=== PATIENT | male | born 2000 | race Hispanic/Latino ===

== ENCOUNTER 2022-04-29 18:13 | Emergency (ER) | payer MEDICAID ==
[~2022-04-29] VITALS: Ht 167.6 cm; Wt 57.2 kg
[2022-04-29 18:14] VITALS: BP 135/82
[2022-04-29 19:00] LABS: APPEARANCE,URINE CLEAR (CLEAR); BILIRUBIN,URINE NEGATIVE (NEGATIVE); COLOR,URINE YELLOW (YELLOW); GLUCOSE, URINE (UA) NEGATIVE (NEGATIVE); KETONES,URINE 20 mg/dL (NEGATIVE); LEUKOCYTE ESTERASE ,URINE NEGATIVE Leu/uL (NEGATIVE); NITRATE,URINE NEGATIVE (NEGATIVE); OCCULT BLOOD,URINE NEGATIVE (NEGATIVE); PROTEIN,URINE 50 mg/dL (NEGATIVE); UROBILINOGEN,URINE 6 mg/dL (0.2-1.0)
[2022-04-29] MEDS ORDERED: ACETAMINOPHEN 500 MG TABLET PO ONE (19:00)
[2022-04-29] MEDS ORDERED: ONDANSETRON ODT 4MG TAB SL ONE (19:00)
[2022-04-29] MEDS ORDERED: IBUPROFEN 600 MG TABLET PO ONE (19:00)
[2022-04-29 19:11] LABS: BACTERIA,URINE RARE /HPF (None Seen); MUCUS,URINE MANY LPF (None Seen); SQUAMOUS EPITHELIAL CELL,UR RARE /HPF (0-2)
[2022-04-29] MEDS ORDERED: CEFTRIAXONE 1G VIAL IM ONE (19:30)
[2022-04-29] MEDS ORDERED: LIDOCAINE HCL 1% 10 ML VIAL ONE (19:39)
[2022-04-29] MEDS ORDERED: IBUP-2071 PO (20:00)
[2022-04-29] MEDS ORDERED: ACET-2247 PO (20:00)
[2022-04-29] MEDS ORDERED: CEPH500B PO (20:00)
[2022-04-29] MEDS ORDERED: OSEL75 PO (20:00)
[2022-04-29] MEDS ORDERED: OSELTAMIVIR PHOSPHATE 75 MG CAP ONE (20:09)
[2022-04-29] MEDS ORDERED: OSELTAMIVIR PHOSPHATE 75 MG CAP PO SCH (20:30)
== END 2022-04-29 20:16 | disposition home or self-care (01) ==
LOC: EDH 18:13
DX: N39.0 Urinary tract infection, site not specified (principal); J10.1 Influenza due to other identified influenza virus with other respiratory manifestations; Z20.822 Contact with and (suspected) exposure to COVID-19; Z79.899 Other long term (current) drug therapy
CPT/HCPCS: 99284; 87635; 87804 ×2; 81001; 96372; C9803; J0696; J3490

== ENCOUNTER 2023-06-26 21:18 | Emergency (ER) | payer MEDICAID, OTHER ==
[~2023-06-26] VITALS: Ht 167.6 cm; Wt 58.1 kg
[~2023-06-26 21:18] MED LIST: ACET-2247 PO; CEPH500B PO; IBUP-2071 PO; OSEL75 PO
[2023-06-26 21:22] VITALS: BP 149/85; PULSE 87; RESP 18
== END 2023-06-27 00:22 | disposition left against medical advice (07) ==
LOC: EDH 21:18
DX: R05.9 Cough, unspecified (principal); Z53.21 Procedure and treatment not carried out due to patient leaving prior to being seen by health care provider
CPT/HCPCS: 99281